=== PATIENT | female | born 1980 | race Caucasian/White ===

== ENCOUNTER → 2018-03-02 | Outpatient (REF) | payer OTHER | LOC: M LAB REF 16:25 | DX: E04.1 Nontoxic single thyroid nodule (principal) ==

== ENCOUNTER → 2020-08-07 | Outpatient (CLI) | payer OTHER ==
--- NOTE | 2020-08-07 10:26 | REP ---
INDICATION: VARICOSE VEINS COMPARISON: None. TECHNIQUE: Real time compression and duplex Doppler interrogation of the bilateral lower extremity deep venous system is performed. FINDINGS: Bilaterally, the common femoral, superficial femoral and popliteal veins are fully compressible with transducer pressure and demonstrate normal spontaneous and phasic flow, without evidence of deep venous thrombosis. Evaluation for venous reflux is performed. On the right no reflux seen in any portion of the superficial or deep venous system. There is an anterior accessory greater saphenous vein present. The greater saphenous vein measures 7 mm at the saphenofemoral junction and 4 mm more distally. The lesser saphenous vein measures 4 mm. On the left there is no evidence of venous reflux involving any portion of the superficial or deep system. There is no anterior accessory greater saphenous vein. There is a collateral venous structure communicating with the mid greater saphenous vein. The greater saphenous vein measures 7 mm at the saphenofemoral junction and 4 mm more distally. The lesser saphenous vein measures 6 mm. IMPRESSION: No evidence of deep venous thrombosis of the bilateral lower extremity femoral popliteal venous system. No evidence of venous reflux bilaterally in the superficial or deep venous systems. <Electronically signed by Shlomo Sorensen > 08/07/20 1028
== END ==
LOC: M RAD 08:36
PROVIDERS: ATTEND Physician Assistant
DX: I83.813 Varicose veins of bilateral lower extremities with pain (principal)